=== PATIENT | male | born 1955 | race Caucasian/White ===

== ENCOUNTER → 2020-04-22 10:47 | Outpatient (CLI) | payer MEDICARE, BC, SELFPAY ==
[2020-04-22 12:59] LABS: Prostate Specific Ag, Diagnost < 0.064 ng/ml (0.0-4.0)
== END ==
PROVIDERS: Visit Provider Urology
DX: C61 Malignant neoplasm of prostate (principal)
CPT/HCPCS: 36415; 84153

== ENCOUNTER → 2021-04-21 10:15 | Outpatient (CLI) | payer MEDICARE, BC, SELFPAY ==
[2021-04-21 11:14] LABS: Prostate Specific Ag, Diagnost 0.162 ng/ml (0.0-4.0)
== END ==
PROVIDERS: Visit Provider Urology
DX: C61 Malignant neoplasm of prostate (principal)
CPT/HCPCS: 36415; 84153